=== PATIENT | male | born 1955 | race Caucasian/White ===

== ENCOUNTER 2018-02-20 08:52 | Day surgery (SDC) | payer OTHER ==
[~2018-02-20 08:52] MED LIST: LIDOCAINE 2% (SDV) 5 ML INJ
[2018-02-20] MEDS ORDERED: MIDAZOLAM 1 MG/ML 2 ML INJ (12:39)
[2018-02-20] MEDS: LIDOCAINE 1%/EPI 30 ML INJ ×2 (13:28→14:28)
[2018-02-20] MEDS: BUPIVACAINE 0.5%/EPI (SDV) 30 ML INJ (14:28)
[2018-02-20] MEDS ORDERED: CEFAZOLIN 1 GM INJ (14:52)
[2018-02-20] MEDS ORDERED: ROCURONIUM 50 MG INJ (14:52)
[2018-02-20] MEDS ORDERED: SUCCINYLCHOLINE CHLORIDE 100 MG/5 ML SYG IV (14:52)
[2018-02-20] MEDS ORDERED: PROPOFOL 20 ML (14:52)
[2018-02-20] MEDS ORDERED: SUGAMMADEX SODIUM 200 MG/2 ML VIAL IV (14:52)
[2018-02-20] MEDS ORDERED: MEPERIDINE 25 MG INJ IV (15:30)
[2018-02-20] MEDS ORDERED: DIPHENHYDRAMINE 50 MG INJ IV (15:30)
[2018-02-20] MEDS ORDERED: METOCLOPRAMIDE 10 MG INJ IV (15:30)
[2018-02-20] MEDS ORDERED: HYDROmorphONE 1 MG/5 ML IV SYRINGE IV ×2 (15:30)
[2018-02-20] MEDS ORDERED: ONDANSETRON 4 MG INJ IV (15:30)
[2018-02-20] MEDS ORDERED: FENTAnyl 50 MCG/ML VIAL IV ×2 (15:30)
== END 2018-02-20 17:05 | disposition home or self-care (01) ==
LOC: SDS 08:52
DX: M13.841 Other specified arthritis, right hand (principal)
CPT/HCPCS: 25447; 71045; 73140